=== PATIENT | female | born 1975 | race Caucasian/White ===

== ENCOUNTER 2022-10-29 14:00 | Emergency (ER) | payer MEDICARE, OTHER ==
--- OUTSIDE RECORDS SUMMARY | 2022-10-29 14:44 | XMS ---
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 E.Iwona VISIT COUNT (12 MO.) [address] [place]ara [place] 1 [place] TOTAL 7 NOTE: Visits indicate total known visits. ED/UCC VISIT TRACKING (12 MO.) 10/29/2022 14:02 [place]ON[place] Rawls [place] TYPE: Emergency COMPLAINT: - MEDICAL CLEARANCE [facility] DIAGNOSES: - Other fatigue - Fatigue 07/30/2022 10:42 [facility] Da [place] TYPE: Emergency DIAGNOSES: - Chest pain, unspecified - Dizziness - dizzy 07/30/2022 03:29 [facility] Da [place] TYPE: Emergency DIAGNOSES: - Chest pain, unspecified - Moderate persistent asthma with (acute) exacerbation - Other specified abnormalities of plasma proteins - Periapical abscess without sinus - Type 2 diabetes mellitus with mild nonproliferative diabetic retinopathy without macular edema, bilateral - Chest Pain - Hypertension 07/22/2022 11:07 [facility] Da L[place] TYPE: Emergency DIAGNOSES: - Unspecified abdominal pain - Abdominal Pain - blood in urine - Blurred Vision [facility]12[facility] DIAGNOSES: - Dizziness - dizzy - Fatigue - Hypertension 04/12/2022 21:37 [facility] DIAGNOSES: - Weakness - Altered Mental Status INPATIENT VISIT TRACKING (12 MO.) 07/30/2022 10[facility] DIAGNOSES: - Chest pain, unspecified - Other specified abnormalities of plasma proteins [email or web address]
[2022-11-01] MEDS ORDERED: METFORMIN HCL500 MG PO (11:35)
[2022-11-01] MEDS ORDERED: ZYPREXA10 MG PO (11:35)
[2022-11-01] MEDS ORDERED: LOSARTAN POTASS50 MG PO (11:35)
[2022-11-01 11:41] VITALS: BP 137/82
== END 2022-11-01 11:55 | disposition home or self-care (01) ==
LOC: ED 14:00
DX: F91.9 Conduct disorder, unspecified (principal); F19.10 Other psychoactive substance abuse, uncomplicated; Z20.822 Contact with and (suspected) exposure to COVID-19
CPT/HCPCS: 36415; 80053; 81003; 84443; 84703; 85025; 96372; 99285; A9270; G0480; J1630; J2060; U0003

== ENCOUNTER 2023-04-18 20:54 | Emergency (ER) | payer MEDICARE ==
[~2023-04-18] VITALS: Ht 121.9 cm; Wt 68.0 kg
[~2023-04-18 20:54] MED LIST: LOSARTAN POTASS50 MG PO; METFORMIN HCL500 MG PO; ZYPREXA10 MG PO
--- OUTSIDE RECORDS SUMMARY | 2023-04-18 20:58 | XMS ---
PreManage Notification: ALMA ROSA STONER Security Historical Site Guide Events No recent Security Events currently on file CRITERIA MET - 6 ED Visits in 6 Months - [facility] Guidelines CARE PROVIDERS -, [place]- Dentist: Electronic Train Control Technician [facility] Dental [facility] PHONE: [phone] ALLI HUMPHREY Nurse Practitioner: Family Current PHONE: [phone] EUGENIO Internal Medicine [facility] PHONE: [phone] Guidelines Source: [facility] Guidelines Date: 01/03/2023 Care Recommendation: Please contact [facility] [place] [place] [phone] if seen the ED.\T\ nbsp; E.D. VISIT COUNT (12 MO.) [address] Samara Simons ([place]) 2 SALONI Mancuso TOTAL 15 NOTE: Visits indicate total known visits. ED/UCC VISIT TRACKING (12 MO.) 04/18/2023 20:55 [place] TYPE: Emergency COMPLAINT: - BLOOD PRESSURE PROBLEM 03/14/2023 19:50 [facility] [place] ([place]) TYPE: Emergency DIAGNOSES: - Essential (primary) hypertension - Tubulo-interstitial nephritis, not specified as acute or chronic - Abdominal Pain - EMS 01/01/2023 08:54 [facility] Da [place] ([place]) TYPE: Emergency DIAGNOSES: - Chest Pain - cp - Suicidal 12/30/2022 15:21 [facility] [place] ([place]) TYPE: Emergency DIAGNOSES: - dizzy,blurry - Fatigue 12/29/2022 17:29 [facility] [place] ([place]) TYPE: Emergency DIAGNOSES: - Anxiety disorder, unspecified - Paresthesia of skin - eye pain and poss high blood pressure - Hypertension - Patient's other noncompliance with medication regimen for other reason 12/22/2022 17:31 [facility] [place] ([place]) TYPE: Emergency DIAGNOSES: - Suicidal ideations - Foot Pain - Suicidal - Weakness - weakness and poss dehydration 12/21/2022 08:15 [facility] [place] ([place]) TYPE: Emergency DIAGNOSES: - Essential (primary) hypertension - Paresthesia of skin - high bp - Hypertension 12/20/2022 11:59 [facility] [place] ([place]) TYPE: Emergency DIAGNOSES: - Acidosis, unspecified - Anemia, unspecified - Chronic obstructive pulmonary disease, unspecified - Essential (primary) hypertension - Homelessness unspecified - Hypertensive urgency - Hypocalcemia - Hypokalemia - Pain in right foot - Type 2 diabetes mellitus with mild nonproliferative diabetic retinopathy without macular edema, bilateral - Dizziness 11/05/2022 00:49 [facility] Da [place] ([place]) TYPE: Emergency DIAGNOSES: - Sciatica, unspecified side - Overdose (Intentional) 10/29/2022 14:02 SALONI [place] TYPE: Emergency COMPLAINT: - MEDICAL CLEARANCE DIAGNOSES: - Conduct disorder, unspecified - Contact with and (suspected) exposure to COVID-19 - Other psychoactive substance abuse, uncomplicated - Restlessness and agitation [facility]22 [facility]: Emergency DIAGNOSES: - Other fatigue - Fatigue 07/30/2022 10:42 [facility] Da [place] ([place]) TYPE: Emergency DIAGNOSES: - Chest pain, unspecified - Dizziness - dizzy 07/30/2022 03:29 [facility] [place] (Da [place]) TYPE: Emergency DIAGNOSES: - Chest pain, unspecified - Moderate persistent asthma with (acute) exacerbation - Other specified abnormalities of plasma proteins - Periapical abscess without sinus - Type 2 diabetes mellitus with mild nonproliferative diabetic retinopathy without macular edema, bilateral - Chest Pain - Hypertension 07/22/2022 11:07 [facility] [place] (Da [place]) TYPE: Emergency DIAGNOSES: - Unspecified abdominal pain - Abdominal Pain - blood in urine - Blurred Vision 05/12/2022 12:31 [facility] [place] (Da [place]) TYPE: Emergency DIAGNOSES: - Dizziness - dizzy - Fatigue - Hypertension INPATIENT VISIT TRACKING (12 MO.) 03/14/2023 19:50 [facility] Da L[place] ([place]) TYPE: Medical Surgical DIAGNOSES: - Essential (primary) hypertension - Tubulo-interstitial nephritis, not specified as acute or chronic 07/30/2022 10:42 [facility] Da L[place] ([place]) TYPE: Medical Surgical DIAGNOSES: - Chest pain, unspecified - Other specified abnormalities of plasma proteins [email or web address]
[2023-04-18 21:28] LABS: BASOPHILS 1.5 % (0-2); EOSINOPHILS 1.7 % (0-6); HEMATOCRIT 42.6 % (35.0-50.0); HEMOGLOBIN 14.4 g/dL (12.0-18.0); LYMPHOCYTES 43.5 % (24-44); MCH 28.8 (27-36); MCHC 33.7 g/dl (30-36); MCV 85.6 fl (81-99); MONOCYTES 6.5 % (0-12); NEUTROPHILS 46.8 % (39-80); PLATELET COUNT 284 K/uL (140-440); RBC 4.98 M/ul (4.3-5.7); RDW 13.3 (10.5-15.0)
[2023-04-18 21:45] LABS: ALBUMIN 3.2 g/dL (3.4-5.0); ALBUMIN/GLOBULIN RATIO 1.03 (1.1-2.4); ANION GAP 11.2 (7-21); BILIRUBIN, TOTAL 0.1 ng/dL (0.2-1.0); BUN/CREATININE RATIO 17.7 (6.0-28.6); CALCIUM 8.9 mg/dL (8.5-10.1); CREATININE, SERUM 0.96 mg/dL (0.55-1.02); MAGNESIUM 1.9 mg/dL (1.8-2.4); POTASSIUM 4.2 mmol/L (3.5-5.1); PROTEIN, TOTAL 6.3 g/dL (6.4-8.2)
--- NOTE | 2023-04-18 23:12 | EKG ---
[facility] [address] [place], [place] [address] Signed Normal sinus rhythm Incomplete right bundle branch block Nonspecific T wave abnormality Abnormal ECG No previous ECGs available Confirmed by Mia John MD () on 04/18/2023 11:11:59 PM Electronically Signed By: MIA JOHN MD 04/18/23 [facility] PATIENT NAME: ALMA ROSA STONER Electrocardiogram DATE OF : 75 PHYSICIAN: MIA JOHN MD REPORT #: [id number] REPORT IS CONFIDENTIAL AND NOT TO BE RELEASED WITHOUT AUTHORIZATION
[2023-04-18] MEDS ORDERED: LOSARTAN POTASS50 MG PO (23:40)
[2023-04-18] MEDS ORDERED: ZYPREXA10 MG PO (23:40)
[2023-04-18] MEDS ORDERED: METFORMIN HCL500 MG PO (23:40)
[2023-04-18 23:51] VITALS: BP 140/117
== END 2023-04-18 23:50 | disposition home or self-care (01) ==
LOC: ED 20:54
PROVIDERS: Family Medicine
DX: I10 Essential (primary) hypertension (principal); Z79.899 Other long term (current) drug therapy; Z79.84 Long term (current) use of oral hypoglycemic drugs
CPT/HCPCS: 36415; 71045; 80053; 83735; 84484; 85025; 93005; 93010; 96374; 96375; 99285-25